=== PATIENT | female | born 1945 | race Caucasian/White ===

== ENCOUNTER 2022-06-23 08:34 | Day surgery (SDC) | payer OTHER, MEDICARE ==
[2022-06-21 17:00] VITALS: BMI 33.8
[2022-06-23] MEDS ORDERED: LIDOCAINE 1% P/F 10 MG/ML VIAL ONE (08:48)
[2022-06-23] MEDS ORDERED: CARBACHOL 0.01% INTRA-OCULAR 1.5 ML VIAL ONE (08:48)
[2022-06-23] MEDS ORDERED: TETRACAINE 0.5% OPHTH SOLN 2 ML BOTTLE ONE (08:48)
[2022-06-23] MEDS ORDERED: NEO/POLYMYX B SULF/DEXAMETH OPHTHALMIC 5ML BOTTLE ONE (08:48)
[2022-06-23] MEDS ORDERED: BSS (NA/CA/MG/K) BALANCED SALT SOLUTION OPHTH SOLN 15 ML BOTTLE ONE (08:48)
[2022-06-23] MEDS: PHENYLEPHRINE 2.5% OPHTH SOLN 15 ML BOTTLE ONE ×3 (09:05→09:15)
[2022-06-23] MEDS: CIPROFLOXACIN 0.3% EYE DROPS 5 ML BOTTLE ONE ×3 (09:05→09:15)
[2022-06-23] MEDS: CYCLOPENTOLATE 2% OPHTH SOLN 2 ML BOTTLE ONE ×3 (09:05→09:15)
[2022-06-23] MEDS: TROPICAMIDE 1% OPHTH SOLN 15 ML BOTTLE ONE ×3 (09:05→09:15)
[2022-06-23 09:08] VITALS: PULSE 80; RESP 16
[2022-06-23] MEDS ORDERED: MIDAZOLAM HCL 2 MG/2 ML SINGLE DOSE VIAL ONE (10:10)
[2022-06-23] MEDS ORDERED: ONDANSETRON 4 MG/2 ML VIAL ONE (10:14)
[2022-06-23] MEDS ORDERED: ACETAMINOPHEN 500 MG TABLET (FP) ONE (10:46)
[2022-06-23 10:50] VITALS: TEMP 97.7
[2022-06-23 11:30] VITALS: BP 110/46
== END 2022-06-23 11:25 | disposition home or self-care (01) ==
LOC: FASU 08:34
PROVIDERS: ATTEND Ophthalmology
PROC: 08RK3JZ Replacement of Left Lens with Synthetic Substitute, Percutaneous Approach (ICD-10-PCS; principal; 2022-06-23 10:16)
DX: H26.8 Other specified cataract (principal)
CPT/HCPCS: 66984; V2632